=== PATIENT | female | born 1980 | race African-American/Black ===

== ENCOUNTER 2021-08-27 10:47 | Emergency (ER) | payer BC, SELFPAY ==
[2021-08-27 11:01] VITALS: BP 130/89; PULSE 79; RESP 16; TEMP 36.6; O2SAT 99
--- NOTE | 2021-08-27 11:15 | ED.BACK ---
HPI - Back Pain/Injury General Chief Complaint: Back Pain/Injury Stated Complaint: Back Pain Time Seen by Provider: 08/27/21 11:16 Source: patient, family and RN notes reviewed Mode of arrival: ambulatory Limitations: no limitations History of Present Illness HPI Narrative: 40-year-old female presents to the [facility] with complaints of lower back pain for the last week. Patient states that she does a lot of bending over at work and lifting. At first she thought it was due to her. And her history of fibroids. States that she finished her period yesterday and the back pain did not go away this time. No saddle anesthesia. No loss or retention of bowel or bladder. No numbness or tingling in extremities. Walks with a normal gait MD elicited complaint: back pain Related Data Allergies Allergy/AdvReac Type Severity Reaction Status Date / Time No Known Allergies Allergy Verified 08/27/21 11:08 Review of Systems Review of Systems: All systems reviewed & are unremarkable except as noted in HPI and below Constitutional: Constitutional: Reports no additional constitutional complaints and Denies weakness Eyes: Eyes: Reports no additional eye complaints ENT: Reports system reviewed and no additional complaints, except as documented Cardiovascular: Cardiovascular: Reports no additional cardiovascular complaints and Denies chest pain Respiratory: Respiratory: Reports no additional respiratory complaints, Denies cough and Denies dyspnea Gastrointestinal: Gastrointestinal: Reports no additional gastrointestinal complaints, Denies abdominal pain, Denies diarrhea, Denies nausea and Denies vomiting Genitourinary: Genitourinary: Denies urinary incontinence Musculoskeletal: Musculoskeletal: Reports as per HPI, Reports back pain (Lower lumbar) and Denies numbness Integumentary/Breasts: Skin/Breast: Reports system reviewed and no additional complaints, except as docu Neurologic: Reports system reviewed and no additional complaints, except as documented, Denies focal weakness, Denies numbness and Denies weakness Psychiatric: Psychiatric: Reports no additional psychiatric complaints Allergic/Immunologic: Allergic/Immunologic: Reports no additional allergic/immunologic complaints PMFSH Past Medical History Medical History (Updated 08/27/21 @ 16:14 by Viv Davies APRN) No significant medical problems Surgical History Surgical History (Updated 08/27/21 @ 16:13 by Viv Davies APRN) No history of previous surgery Social History Social History (Updated 08/27/21 @ 16:13 by POPPY Gamez Living arrangements: with family Gender identity (if verbalized by the patient): Female Comments At the time of my signature, I reviewed and agree with the nursing past medical, surgical, social, and family history. There is no relevant family history pertinent to the patient complaint. Exam Const: General: healthy appearing, no acute distress and alert Nutritional Appearance: well nourished Orientation/consciousness: patient oriented x3 Limitations: no limitations HENMT: Head: normal to inspection Ears: external ears normal Eyes: Pupils: Equal, round and reactive pupils present Neck: Neck: normal visual inspection, no lymphadenopathy and no meningeal signs Chest: Chest palpation & inspection: normal inspection of the chest Resp: Effort & Inspection: normal respiratory effort and no use of accessory muscles Auscultation: clear to auscultation bilaterally, no crackles, no rales, no rhonchi and no wheezes Cardio: Rate: regular rate Rhythm: regular rhythm GI: GI Palp: Yes Soft to palpation, No Tenderness to palpation present (GI) and No Guarding due to palpation present (GI) Back/Spine/Pelvis: Back: no CVA tenderness Cervical Spine: normal cervical lordosis, cervical ROM normal and No Cervical spine tenderness Thoracic/Lumbar Spine: thoracic and lumbar spine normal to inspection, No thoracic spinal tenderness and No
== END 2021-08-27 11:30 | disposition home or self-care (01) ==
PROVIDERS: Emergency Provider Nurse Practitioner
DX: S39.012A Strain of muscle, fascia and tendon of lower back, initial encounter (principal); X58.XXXA Exposure to other specified factors, initial encounter
CPT/HCPCS: 81003; 81025; 99203; G0463

== ENCOUNTER 2021-12-04 16:10 | Emergency (ER) | payer BC, SELFPAY ==
[2021-12-04 16:13] VITALS: BP 152/91; PULSE 88; RESP 22; TEMP 36.4; O2SAT 98
--- NOTE | 2021-12-04 17:43 | PC.NURSE ---
EDP at bedside to assess pt.
--- NOTE | 2021-12-04 17:49 | ED.BACK ---
HPI - Back Pain/Injury General Chief Complaint: Back Pain/Injury Stated Complaint: back pain Time Seen by Provider: 12/04/21 17:35 History of Present Illness HPI Narrative: Pt is a 41 y/o female, PMHx of low back pain, presents to ED via POV with low back discomfort, exacerbated by cleaning her bathroom two days ago. She is taking Ibuprofen 600 mg and methocarbamol 500 mg 1-2 tablets daily for the past 24 hours without much improvement. She denies bowel or bladder incontinence, saddle anesthesia, or radicular symptoms. She denies chance of . She did transport herself today Related Data Allergies Allergy/AdvReac Type Severity Reaction Status Date / Time No Known Allergies Allergy Verified 09/07/21 09:36 Review of Systems Musculoskeletal: Comments: refer to [facility] Past Medical History Medical History No significant medical problems Uterine fibroid Surgical History Surgical History No history of previous surgery Family History Family History (Updated 09/07/21 @ 09:38 by Candice Webster MA) Father Alcohol abuse Hypertension Depression Anxiety Heart disease Leukemia Mother Alcohol abuse Hypertension Anxiety Depression Heart disease Cerebrovascular accident Social History Social History (Updated 09/07/21 @ 10:27 by Renuka Benson NP) Social History: Pt is single lives with roommate. 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 Smoking status: Never smoker Alcohol intake: current Drinks per week: 10 Alcohol use details: Pt drinks 2 cups of crown qd--Drinks on weekends. Substance use: never Substance use type: does not use Additional occupation/education comments: [employer] Gender identity (if verbalized by the patient): Female Sexual Orientation (if Verbalized by the Patient): Straight or Heterosexual Agree to blood products: Yes Exam Const: General: healthy appearing, no acute distress and alert Orientation/consciousness: patient oriented x3 Limitations: no limitations HENMT: Head: normal to inspection Face and sinus: normal facial exam Mouth: Yes Normal oral and palatal mucosa present Teeth and gingiva: dentition normal Throat: posterior oropharynx normal Eyes: Conjunctivae: conjunctivae normal Pupils: Equal, round and reactive pupils present EOM: EOMs intact bilaterally Direct Ophthalmoscopy: no photophobia Neck: Neck: normal visual inspection, no lymphadenopathy and no meningeal signs Resp: Effort & Inspection: normal respiratory effort Auscultation: clear to auscultation bilaterally Cardio: Rate: regular rate Rhythm: regular rhythm GI: GI Palp: Yes Soft to palpation, No Tenderness to palpation present (GI), No Guarding due to palpation present (GI), No Rigid due to palpation, No Hernia present, No Palpable mass present and No Rebound tenderness present Back/Spine/Pelvis: Back: no CVA tenderness Other: Pt is TTP over the lumbar paraspinal muscles, no palpable spasm. There is TTP over the SI joints bilaterally as well. Normal ROM. negative SLR bilaterally Skin: General skin exam: normal color Rashes: no rashes Wounds: no wounds Neuro: General: patient oriented x3, moves all extremities, no meningeal signs, no focal motor deficits and CN's II-XI intact bilaterally Extrem: General: normal to inspection, no clubbing, cyanosis or edema and no pedal edema Other: no calf TTP, no palpable cord. Course Course Emergency Course: Toradol given here, increasing dose of Robaxin, stopping Ibuprofen and starting oral Diclofenac at home, RICE and FU with PCP if pain is not improving near week's end for possible PT referral as indicated. Pt is agreeable with plan. Vital Signs Vital signs: Vital Signs Temperature 36.4 C 12/04/21 16:13 Pulse Rate 88 12/04/21 16:13 Res
[2021-12-04] MEDS: KETOROLAC (*BKC) 60 MG/2 ML VIAL IM (18:41)
[2021-12-04 19:06] VITALS: BP 141/90; PULSE 76; RESP 14; O2SAT 100
== END 2021-12-04 19:07 | disposition home or self-care (01) ==
LOC: ANHED 18:37
PROVIDERS: Emergency Provider Nurse Practitioner Family; PCP Family Medicine
DX: S39.012A Strain of muscle, fascia and tendon of lower back, initial encounter (principal); X50.9XXA Other and unspecified overexertion or strenuous movements or postures, initial encounter
CPT/HCPCS: 96372; 99283; J1885